=== PATIENT | male | born 1965 | race Caucasian/White ===

== ENCOUNTER 2017-05-03 06:35 | Day surgery (SDC) | payer OTHER ==
[~2017-05-03 06:35] MED LIST: Acetaminophen TAB* 325 MG PO PRN; Buffered Lidocaine 0.9% SYRIN* 5 ML/SYR SYRINGE INTRADERM ONE
[2017-05-03] MEDS ORDERED: Neomycin/Polymy/Dex OPHTH.OIN* 3.5 GM ONE (07:18)
[2017-05-03] MEDS ORDERED: Tropicamide 1% OPTH.SOL* BTL ONE (07:18)
[2017-05-03] MEDS ORDERED: Tetracaine 0.5% OPTH.SOL 4 ML* 1 DROP BTL ONE (07:18)
[2017-05-03] MEDS ORDERED: Phenylephrine 2.5% OPTH.SOL* 2 ML BTL ONE (07:18)
[2017-05-03] MEDS ORDERED: Buffered Lidocaine 0.9% SYRIN* 5 ML/SYR SYRINGE ONE (07:18)
[2017-05-03] MEDS ORDERED: Midazolam* 1 MG/ML 2 ML VIAL (2 MG) ONE (07:18)
[2017-05-03] MEDS ORDERED: fentaNYL* 50 MCG/ML 2 ML VIAL (100 MCG VIAL) ONE (07:18)
[2017-05-03] MEDS ORDERED: Flurbiprofen 0.03% OPTH.SOL* 2.5 ML BTL ONE (07:18)
[2017-05-03] MEDS ORDERED: Cyclopentolate 1% OPTH.SOL* 2 ML BTL ONE (07:18)
[2017-05-03] MEDS ORDERED: Lidocaine 1% MPF* 2 ML VIAL ONE (07:18)
[2017-05-03 08:11] VITALS: BP 115/84
--- NOTE | 2017-05-04 02:29 | OP ---
DATE OF OPERATION: 05/03/17 - [facility] DATE OF : 61 SURGEON: Terry Pham MD HOME HEALTH AIDE: None. ANESTHESIOLOGIST: Diana Saenz MD ANESTHESIA: Topical with intravenous sedation. PRE-OP DIAGNOSIS: Cataract with astigmatism, left eye. POST-OP DIAGNOSIS: Cataract with astigmatism, left eye. OPERATIVE PROCEDURE: Phacoemulsification and cataract extraction with posterior chamber intraocular lens (toric lens), left eye. COMPLICATIONS: None. ESTIMATED BLOOD LOSS: None. DESCRIPTION OF PROCEDURE: The patient was seen preoperatively in the holding area, where he was placed in an upright position and a shanell was made at the 6 o' clock position off the limbus of the left eye. The patient was subsequently brought to the operating room where he was given a small amount of intravenous sedation. A drop of tetracaine was placed into his left eye. The patient was prepped and draped in the usual sterile fashion for ophthalmic surgery and attention was directed to the left eye where a speculum was placed. A paracentesis was created at the 5 o'clock position and 0.1 cc of 1% preservative -free lidocaine was injected into the anterior chamber followed by DisCoVisc. The eye was digitally stabilized while a 2.75-mm keratome was used to create a triplanar clear corneal incision at the 3 o'clock position. A continuous curvilinear capsulorrhexis was created with a cystotome and Utrata forceps. BSS on a cannula was used to hydrodissect the lens from the capsule. Phacoemulsification was performed in a pzzphh-wfv-ynpcehy technique to create 4 fragments, which were removed. Residual cortical material was removed with irrigation and aspiration. Capsular polishing was performed vigorously with an effort to remove a plaque that was adherent to the posterior capsule. This was predominantly successful with slight residual plaque formation that could not be safely removed. Healon was used to inflate the capsular bag. A Yadav marker and marking pen were used to shanell the 86-degree axis. An SN6AT5 18.5 diopter lens was folded and inserted into the capsular bag. The lens was dialed to the appropriate axial alignment using the Sinskey hook. The Sinskey hook remained in the eye. The paracentesis stabilized the lens while irrigation and aspiration were performed to remove viscoelastic from the eye. The Sinskey hook was removed from the eye. BSS on a cannula was used to hydrate the corneal stroma and seal the wound. At the end of the case, the lens was centered, stable, and axially aligned. The eye pressure appeared normal. The wound was watertight. The speculum was removed and topical Maxitrol ointment was placed on the surface of the eye. The eye was closed, patched, and shielded and the patient was sent to recovery room in stable condition with postoperative instructions and followup appointment given. [id number]/[facility] #: [id number] HARISH
== END 2017-05-03 08:15 | disposition home or self-care (01) ==
LOC: OREAST 06:35
PROVIDERS: ATTEND Ophthalmology
DX: H25.12 Age-related nuclear cataract, left eye (principal); H52.202 Unspecified astigmatism, left eye; E03.9 Hypothyroidism, unspecified
CPT/HCPCS: A9270-GY; J2250; J3010; V2787

== ENCOUNTER 2017-09-01 12:19 | Day surgery (SDC) | payer OTHER ==
--- NOTE | 2017-08-24 07:48 | HP ---
CC: Dr. Sejal Salazar * PREOPERATIVE HISTORY AND PHYSICAL: DATE OF ADMISSION: 09/01/17 This patient is scheduled for same-day surgery admission by Dr. Cross, on , 09/01/17. ATTENDING SURGEON: Ezio Cross MD * (dictated by Daniela Andrews NP). CHIEF COMPLAINT: Umbilical hernia. HISTORY OF PRESENT ILLNESS: The patient is a 52-year-old male, recently evaluated by Dr. Cross for an umbilical hernia. The patient states the umbilical hernia has been present for many years, but more recently it has become uncomfortable and bulging. He denies any signs or symptoms to suggest incarceration or strangulation. Dr. Cross examined the patient and notes a tender bulging umbilical hernia. Dr. Cross has recommended open umbilical hernia repair with mesh as a same-day surgery procedure and has described the nature of the procedure, the rationale for the procedure, the relevant risks and benefits and today, I reviewed the expected postoperative care and recovery. The patient has had a chance to ask questions and stated that he understands the information and is satisfied with the answers given to his questions. He will sign surgical consent on the day of surgery. PAST MEDICAL HISTORY: Significant for: 1. Hypothyroidism. 2. Hyperlipidemia. 3. Impaired fasting glycemia. PAST SURGICAL HISTORY: Right inguinal hernia repair, meniscus repair both knees and extraction of cataracts. MEDICATIONS: None currently. ALLERGIES: No known drug allergies. FAMILY HISTORY: No known anesthesia complications, bleeding tendencies, or clotting disorders. 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 He is a nonsmoker. He rarely drinks alcohol and denies the use of other substances. REVIEW OF SYSTEMS: Constitutional: No fevers, chills, excessive fatigue or weight loss. Endocrine: History of impaired fasting glycemia and hypothyroidism. Hematologic: No easy bruising or bleeding. No previous blood transfusions. Respiratory: No chronic cough or dyspnea on exertion. Cardiovascular: No anginal chest pain or palpitations. Gastrointestinal: No nausea, vomiting, diarrhea, or constipation. No change in bowel habits. Genitourinary: No dysuria. Musculoskeletal: No complaints of joint or back pain. Neurologic: No complaints of headache, blurred vision, no areas of focal weakness or numbness. Normal gait. General: No previous anesthesia complications. No history of deep vein thrombosis or pulmonary embolism. PHYSICAL EXAMINATION GENERAL SURVEY: The patient is a 52-year-old male, well developed, well nourished, slightly overweight, in no acute distress. VITAL SIGNS: Height 68 inches, weight 210 pounds, body mass index 31.9. Blood pressure 138/90, pulse 72 and regular, respiratory rate 18, temperature 99.2. HEENT: Benign. NECK: Supple. No cervical lymphadenopathy. LUNGS: Breath sounds bilaterally clear and equal. HEART: Regular rate and rhythm. No murmurs or rubs appreciated. ABDOMEN: Protuberant, active bowel sounds, soft and nondistended. Obvious umbilical hernia bulge that is tender to palpation, reducible when the patient is supine. No other obvious masses or organomegaly. BACK: No CVA tenderness. GENITALIA: Exam deferred. RECTAL: Exam deferred. EXTREMITIES: Warm without edema or skin ulcerations. NEUROLOGIC: Alert and oriented x3, steady gait. SKIN: Warm, dry, intact. IMPRESSION: Umbilical hernia. PLAN: Same-day surgery admission to Dr. Cross's service on , 09/01/17 , for open umbilical hernia repair with mesh. DANIELA ANDREWS, STOCK TRANSFER CLERK [id number]/[facility] #: [id number] HARISH
[~2017-09-01 12:19] MED LIST changes: -Acetaminophen TAB* 325 MG PO PRN
[2017-09-01] MEDS ORDERED: Buffered Lidocaine 0.9% SYRIN* 5 ML/SYR SYRINGE ONE (12:25)
[2017-09-01] MEDS ORDERED: ceFAZolin 2 GM PREMIX (*) 2 GM/50 ML BAG IVPB ONE (12:25)
[2017-09-01] MEDS ORDERED: Midazolam* 1 MG/ML 2 ML VIAL (2 MG) ONE (13:40)
[2017-09-01] MEDS ORDERED: Famotidine IV* 10 MG/ML 2 ML (20 mg) ONE (14:01)
[2017-09-01] MEDS ORDERED: Lidocaine 2% PF * 5 ML VIAL ONE (14:09)
[2017-09-01] MEDS ORDERED: Propofol* 10 MG/ML 20 ML BTL IV PUSH ONE (14:09)
[2017-09-01] MEDS ORDERED: Dexamethasone IV* 4 MG/ML 1 ML (4 MG) ONE (14:09)
[2017-09-01] MEDS ORDERED: fentaNYL* 50 MCG/ML 2 ML VIAL (100 MCG VIAL) ONE ×2 (14:09→14:49)
[2017-09-01] MEDS ORDERED: Bupivacaine 0.25% SDV* 30 ML ONE (14:31)
[2017-09-01] MEDS ORDERED: PROCHLORPERAZINE INJ 5 MG/ML 2 ML VIAL IV PRN (14:38)
[2017-09-01] MEDS ORDERED: Lidocaine 1% MPF wEPI 200,000* 30 ML SDV ONE (14:38)
[2017-09-01] MEDS ORDERED: Acetaminophen TAB* 325 MG PO PRN (14:38)
[2017-09-01] MEDS ORDERED: HYDROcodone/ACETAMIN 5-325 MG* 1 TAB PO PRN (14:38)
[2017-09-01] MEDS ORDERED: fentaNYL* 50 MCG/ML 2 ML VIAL (100 MCG VIAL) IV PRN (14:38)
[2017-09-01] MEDS ORDERED: Ondansetron INJ* 2 MG/ML VIAL IV PRN (14:38)
[2017-09-01] MEDS ORDERED: DiMENhydriNATE IV* 50 MG/ML VIAL IV PUSH PRN (14:38)
--- NOTE | 2017-09-01 15:39 | PN ---
Progress Note - Progress Note Date of Service: 09/01/17 Note: Brief Operative Note: Preop Dx: umbilical hernia Postop Dx: same Procedure: open repair umbilical hernia w/ mesh Anesthesia: local MAC Surgeon: Tay Asst: TAINA Mina Fluids: 800 ml EBL: 20 ml Drains: none Specimen: none Findings: dictated
[2017-09-01] MEDS ORDERED: Labetalol IV* 5 MG/ML 20 ML VIAL ONE (15:46)
[2017-09-01] MEDS ORDERED: Acetaminophen TAB* 325 MG ONE (15:53)
[2017-09-01 17:17] VITALS: BP 146/93
--- NOTE | 2017-09-02 02:08 | OP ---
CC: Dr. Sejal Salazar * DATE OF OPERATION: 09/01/17 - [facility] DATE OF : 61 SURGEON: Ezio Cross MD SPECIAL SYSTEMS TECHNICIAN: TAINA Hermosillo ANESTHESIOLOGIST: Rosenda Rivera MD ANESTHESIA: General anesthetic, local infiltration. PRE-OP DIAGNOSIS: Umbilical hernia. POST-OP DIAGNOSIS: Umbilical hernia. OPERATIVE PROCEDURE: Open umbilical hernia repair with mesh. DESCRIPTION OF PROCEDURE: The patient was supine on the operative table. After adequate general anesthetic, compression stockings, Lyndsey Hugger warmer, and intravenous antibiotic, the abdomen was prepped with antiseptic, draped in a sterile fashion. Local infiltrative anesthesia was administered and infraumbilical curvilinear incision was created. Dissection was carried down to the hernia, which was dissected free and reduced. The preperitoneal plane was developed and an 8-cm underlay coated patch was utilized and was parachuted in using sutures of 0 Vicryl. This was sutured at 8 areas around the circumference and then the fascia was closed over top using 0 Vicryl. The umbilical skin was tacked back down with 3-0 Vicryl, which was also used for the subcutaneum. The dermis was closed with 5-0 Vicryl followed by Steri- Strips. He tolerated the procedure well, was awakened and brought to Recovery in good condition. There were no complications. No drains. No pathologic specimens. Sponge and instrument counts correct. Estimated blood loss 20 mL. [id number]/[facility] #: [id number] MTDD
== END 2017-09-01 17:25 | disposition home or self-care (01) ==
LOC: OR 12:19
PROVIDERS: ATTEND Surgery
DX: K42.9 Umbilical hernia without obstruction or gangrene (principal); R06.83 Snoring
CPT/HCPCS: A9270-GY; C1781; J0690; J1100; J2001; J2250; J2704; J3010